=== PATIENT | male | born 1960 | race Caucasian/White ===

== ENCOUNTER 2017-02-07 20:39 | Emergency (ER) | payer BC ==
[2017-02-07 22:06] LABS: URINE BILIRUBIN NEGATIVE (NEGATIVE); URINE BLOOD 3+ (NEGATIVE); URINE GLUCOSE (UA) NORMAL (NORMAL); URINE KETONE TRACE (NEGATIVE); URINE LEUKOCYTE ESTERASE TRACE (NEGATIVE); URINE NITRATE NEGATIVE (NEGATIVE); URINE PROTEIN TRACE (NEGATIVE); UROBILINOGEN NORMAL mg/dL (<1.0)
[2017-02-07 22:13] LABS: URINE RBC TNTC /[HPF] (0-2); URINE WBC 0-5 /[HPF] (0-3)
== END 2017-02-07 22:29 | disposition home or self-care (01) ==
LOC: ER 20:39
PROVIDERS: General Practice
DX: N20.0 Calculus of kidney (principal); R10.32 Left lower quadrant pain
CPT/HCPCS: 74150; 81001; 96372; 99284-25